=== PATIENT | female | born 1965 | race Caucasian/White ===

== ENCOUNTER → 2016-10-15 | Outpatient (CLI) | payer OTHER ==
[~2016-10-15] MED LIST: ALBUTEROL-200 PUFFS/ IH; ANTIINFLAMATORY OR; BUPROPION HCL150 MG PO; CYMBALTA60 MG PO; DICLOFENAC POTA50 MG PO; HYDROCHLOROTHIA25 M1 PO; KEFLEX500 M1 PO; NEXIUM40 MG PO; PRAVASTATIN 20M20 MG PO; PRILOSEC40 MG PO; PROAIR HFA0.09 MG/AC IH; SYMBICORT1 AE1 IH; ZANTAC 150150 MG PO
[2016-10-15 10:33] LABS: BILIRUBIN, INDIRECT 0.46 mg/dL (0-0.9)
== END ==
LOC: LAB 09:44
PROVIDERS: Internal Medicine
DX: R00.2 Palpitations (principal); E78.5 Hyperlipidemia, unspecified; Z72.0 Tobacco use

== ENCOUNTER → 2016-11-12 | Outpatient (CLI) | payer OTHER ==
--- NOTE | 2016-11-12 16:56 | RADIOLOGY REPORT PS360 ---
CT CHEST W/ CONTRAST INDICATION: Follow-up pulmonary nodule PALPS, HTN, PULMONARY NODULE ORDERING PHYSICIAN: GAMAL GALEANO MD PATIENT AGE: 51 years COMPARISON: TECHNIQUE: Axial images are obtained with contrast. Sagittal and coronal reformatted images are reviewed as well. FINDINGS: There has been a prior median sternotomy/CABG. No evidence of aortic aneurysm or central pulmonary embolus. Coronary artery calcifications are present. Normal heart size. No evidence of pericardial effusion. Scattered atelectatic changes are present in the right upper lobe and both lower lobes. Previously noted 5 mm subpleural nodule in the left lung base is unchanged. There is a 5 mm subpleural nodular opacity in the right upper lobe posteriorly also unchanged. There are centrilobular emphysematous changes. No new nodules are evident. Upper abdominal images are unremarkable. No acute bony anomalies evident. IMPRESSION: 1. Stable bilateral pulmonary nodules with emphysematous change. 2. Increasing bilateral atelectatic changes in the right upper lobe and both lower lobes
== END ==
LOC: RAD 11-08 14:30
DX: R91.1 Solitary pulmonary nodule (principal); R00.2 Palpitations; I10 Essential (primary) hypertension; E78.5 Hyperlipidemia, unspecified

== ENCOUNTER → 2017-01-14 | Outpatient (CLI) | payer OTHER ==
--- NOTE | 2017-01-14 10:58 | RADIOLOGY REPORT PS360 ---
KNEE-3 VIEWS-LT HISTORY: ACUTE KNEE PAIN ORDERING PHYSICIAN: Marta JAEGER PATIENT AGE: 51 years FINDINGS: No fracture or dislocation. No lytic or blastic change. Normal mineralization. There are mild osteoarthritic changes of the medial compartment and patellofemoral joint. No other significant findings IMPRESSION: Mild osteoarthritic change of the medial compartment and patellofemoral joint. The medial compartment osteoarthritic changes appear slightly worse compared to 05/21/2015
--- NOTE | 2017-01-14 10:58 | RADIOLOGY REPORT PS360 ---
KNEE-3 VIEWS-LT HISTORY: ACUTE KNEE PAIN ORDERING PHYSICIAN: Marta AJEGER PATIENT AGE: 51 years FINDINGS: No fracture or dislocation. No lytic or blastic change. Normal mineralization. There are mild osteoarthritic changes of the medial compartment and patellofemoral joint. No other significant findings IMPRESSION: Mild osteoarthritic change of the medial compartment and patellofemoral joint. The medial compartment osteoarthritic changes appear slightly worse compared to 05/21/2015
--- NOTE | 2017-01-14 10:59 | RADIOLOGY REPORT PS360 ---
HIP LT 2-3V W/PELVIS IF PERFOR HISTORY: LT HIP PAIN ORDERING PHYSICIAN: Marta JAEGER PATIENT AGE: 51 years COMPARISON: None FINDINGS: Minimal osteoarthritic changes are present involving both hips with small osteophyte formation at the acetabulum. No fracture or dislocation. No lytic or blastic change. IMPRESSION: Mild osteoarthritic change of the hips
== END ==
LOC: RAD 10:32
DX: M25.552 Pain in left hip (principal); M25.562 Pain in left knee